=== PATIENT | female | born 1940 | race Caucasian/White ===

== ENCOUNTER 2017-06-13 07:59 | Day surgery (SDC) | payer MEDICARE ==
[~2017-06-13] VITALS: Ht 157.5 cm; Wt 46.9 kg
[~2017-06-13 07:59] MED LIST: ALL220TA PO; ASPI325T PO; CALTTAB5 PO; CHOL1CAP6 PO; ENOX40P SQ; LORTA5 PO; METO25 PO; Z.0.COMMODE-3:1; Z.0.WALKERPLAT
[2017-06-13] MEDS ORDERED: SODIUM CHLOR 0.9% 1000 ML INJ 1,000 ML IV SCH (08:00)
[2017-06-13] MEDS ORDERED: SODIUM BICARBONATE 100 MEQ in D5W 1000 ML IV SCH (08:30)
[2017-06-13 08:31] VITALS: BP 191/96; PULSE 86; RESP 16; TEMP 97.8; O2SAT 97
[2017-06-13] MEDS ORDERED: GABA300C5 PO (08:39)
[2017-06-13] MEDS ORDERED: METO25TA6 PO (08:39)
[2017-06-13] MEDS ORDERED: ALLE10TA PO (08:39)
[2017-06-13] MEDS ORDERED: SUDO60TA2 PO (08:39)
[2017-06-13] MEDS ORDERED: CALTCHW5 PO (08:39)
[2017-06-13 08:59] LABS: AUTOMATED NEUTROPHIL # 3.4 TH/MM3 (1.8-7.7); BASOPHIL # 0.1 TH/MM3 (0-0.2); BASOPHIL % 1.1 % (0.0-2.0); EOSINOPHIL # 0.3 TH/MM3 (0-0.4); EOSINOPHIL % 4.8 % (0.0-4.0); HEMATOCRIT 38.9 % (35.0-46.0); HEMO FLAGS DIFF FINAL; LYMPH % 30.8 % (9.0-44.0); LYMPHOCYTE # 1.9 TH/MM3 (1.0-4.8); MEAN CELL VOLUME 90.6 FL (80.0-100.0); MEAN CORPUSCULAR HGB CONC 34.2 % (32.0-36.0); MONO % 7.8 % (0.0-8.0); NEUT % 55.5 % (16.0-70.0); PLATELET COUNT 279 TH/MM3 (150-450); RED BLOOD COUNT 4.29 MIL/MM3 (4.00-5.30); RED CELL DISTRIBUTION WIDTH 13.6 % (11.6-17.2); WHITE BLOOD COUNT 6.1 TH/MM3 (4.0-11.0)
[2017-06-13 09:01] LABS: PROTHROMBIN TIME - PATIENT 11.4 SEC (9.8-11.6)
[2017-06-13 09:11] LABS: POTASSIUM 3.1 MEQ/L (3.5-5.1)
[2017-06-13] MEDS ORDERED: HEPARIN SODIUM - IV 10,000 UNITS/10 ML VIAL ONE (09:39)
[2017-06-13] MEDS ORDERED: MIDAZOLAM HCL 5 MG/ML VIAL (1 ML) ONE (10:12)
--- NOTE | 2017-06-13 10:32 | PD.VS.PN ---
Pre-operative Note Pre-operative diagnosis: PAD, R LE rest pain Planned procedure: Aortogram w/ R LE angiogram Interval History: Pt has nightly pain in the RIGHT foot Labs: Laboratory Results Test 06/13/17 08:15 White Blood Count 6.1 TH/MM3 (4.0-11.0) Red Blood Count 4.29 MIL/MM3 (4.00-5.30) Hemoglobin 13.3 GM/DL (11.6-15.3) Hematocrit 38.9 % (35.0-46.0) Mean Corpuscular Volume 90.6 FL (80.0-100.0) Mean Corpuscular Hemoglobin 31.0 PG (27.0-34.0) Mean Corpuscular Hemoglobin 34.2 % Concent (32.0-36.0) Red Cell Distribution Width 13.6 % (11.6-17.2) Platelet Count 279 TH/MM3 (150-450) Mean Platelet Volume 8.2 FL (7.0-11.0) Prothromb Time International 1.0 RATIO Ratio Sodium Level 138 MEQ/L (136-145) Potassium Level 3.1 MEQ/L (3.5-5.1) Chloride Level 100 MEQ/L (98-107) Carbon Dioxide Level 31.0 MEQ/L (21.0-32.0) Anion Gap 7 MEQ/L (5-15) Blood Urea Nitrogen 10 MG/DL (7-18) Random Glucose 99 MG/DL (74-106) Calcium Level 9.4 MG/DL (8.5-10.1) Blood: none needed Imaging: will make Orders: NPO no antibiotics needed Post-operative destination: DOCU Operative site marked: Yes Consent: Informed consent has been obtained from Analy Young. I have explained the procedure in detail and discussed the risks, benefits, and potential complications. All questions have been answered. Carlos Adames MD Jun 13, 2017 10:32
[2017-06-13] MEDS ORDERED: IOHEXOL 300 MG/ML 50 ML BTL (for RAD DIAG) OTHER ONE (10:35)
[2017-06-13] MEDS ORDERED: IOHEXOL 300 MG/ML 100 ML BTL (for Rad CT) OTHER ONE (10:36)
--- NOTE | 2017-06-13 11:19 | HHI.PR ---
Immediate Post Op Note Procedure Date: Jun 13, 2017 Pre Op Diagnosis: PAD, R LE with rest pain Post Op Diagnosis: PAD, R LE with rest pain Surgeon: Carlos Adames [employer] Gatherer(s): none Procedure: Aortogram w/ R LE angiogram R SFA ACCOUNTS PAYABLE ANALYST Findings: SFA occlusion, successful recanalization and ACCOUNTS PAYABLE ANALYST (5mm) Additional Information: L SAFETY COMPANION Angioseal Complications: none apparent Specimen(s) removed: none Estimated blood loss: 10mL Anesthesia: MAC Drains: None Patient to: Other (DOCU) Patient Condition: Good Date/Time of Procedure: SEE SURGICAL CARE RECORD Carlos Adames MD Jun 13, 2017 11:19
[2017-06-13] MEDS ORDERED: hydrALAZINE HCL 20 MG/ML VIAL ONE (11:21)
[2017-06-13] MEDS ORDERED: CLOPIDOGREL 75 MG TAB PO ONE (11:30)
--- NOTE | 2017-06-13 22:46 | MP ---
cc: JENA ADAMES MD DATE OF SURGERY 06/13/17 PREOPERATIVE DIAGNOSIS Right lower extremity peripheral arterial occlusive disease and rest pain. POSTOPERATIVE DIAGNOSIS Right lower extremity peripheral arterial occlusive disease and rest pain. PROCEDURE 1. Aortogram with right lower extremity angiogram. 2. Right SFA angioplasty with a 5-mm balloon 3. Left common femoral artery Angio-Seal. ATTENDING SURGEON Corbin Adames MD ANESTHESIA Local with sedation INDICATIONS Ms. Young is a 77-year-old female with peripheral vascular occlusive disease and CLARITA of 0.3 on the right with symptomatic rest pain. He is taken to the operating room for angiographic evaluation and potential treatment. There is no prior catheter-based imaging available for my review. PROCEDURE IN DETAIL Informed consent from the patient. She was taken to the operating room and placed supine on the operating table. An appropriate time-out was taken to ensure the patient's identity, operative site and planned procedure. No antibiotics are necessary as this is a clean procedure without a planned implantation of any foreign object. Everyone in the room agreed with the time-out and we proceeded. Her bilateral groins were prepped and draped. Left groin was anesthetized with 1% Lidocaine. A 21 gauge micropuncture needle was used to access the left common femoral artery. It was exchanged using Seldinger technique for a micropuncture sheath through which a 0.035 Casper wire was introduced and the micropuncture sheath was changed for a 4-Andorran sheath. A VCF catheter was placed over the wire through the sheath and an aortogram was obtained. The Casper wire was reintroduced and navigated down to the right common femoral artery and a VCF catheter was advanced over this. A right lower extremity arteriogram was obtained. The patient was systemically heparinized with 5000 units of IV heparin. A 0.035 Barajas wire was introduced and the VCF catheter and 4-Andorran sheath were removed and a 6-Andorran 55 cm Pradeep sheath was introduced. Over the Barajas and through the Pradeep, a 0.035 CXI catheter was placed and the Barajas was exchanged for a 0.014 25 gram ART HANDLER wire. Using the ART HANDLER wire and CXI catheter, we were able to navigate through the SFA occlusion into the popliteal artery. An angiogram confirmed we were indeed in the popliteal artery. The ART HANDLER was exchanged for the Barajas and the entire SFA was angioplastied with a 5 mm balloon. The completion angiogram showed excellent result and a recoil extravasation. There was good runoff of the foot. The wire, catheter and sheath were removed and the groin was closed with an AngioSeal. There were no complications and I was present and scrubbed for the entire procedure. INTERPRETATION The patient had patent renal arteries bilaterally, patent infrarenal aorta that is calcified. There is approximately 30% stenosis of the distal aorta. Both common iliac arteries, hypogastric arteries and external iliac arteries are patent without any hemodynamically significant stenoses. The right common femoral artery is patent. The profunda is patent but diseased. The SFA is occluded after approximately 1 cm. Profunda based collaterals reconstitute the popliteal artery and there appears to be at least peroneal artery runoff. After angioplasting the SFA, there is wide patency of the SFA without any stenoses, extravasation or dissection. After angioplasting the SFA, there is two-vessel runoff to the level of the ankle. MD JASBIR Ballesteros/ /6:00 PM /10:29 PM
--- NOTE | 2017-06-14 11:52 | EKG ---
Date Performed: 06/13/2017 Time Performed: 08:49:26 PTAGE: 77 years EKG: Regular supraventricular rhythm. Septal and lateral ST-T changes are nonspecific Borderline ECG NO PREVIOUS TRACING DOCTOR: Roman Catrer Interpretating Date/Time 06/14/2017 11:50:35
[2017-06-15] MEDS ORDERED: CLOPIDOGREL 75 MG TAB PO SCH (09:00)
== END 2017-06-13 13:46 | disposition home or self-care (01) ==
LOC: HCVO 07:59 → HDIC 08:18 → HCVO 13:46
PROVIDERS: ATTEND Surgery
DX: I70.221 Atherosclerosis of native arteries of extremities with rest pain, right leg (principal); M81.0 Age-related osteoporosis without current pathological fracture
CPT/HCPCS: 37224; 75625; 75710; 80048; 85025; 85610; 93005; C1725; C1769; G0269; J0360; J1644; J2250; J3010; J7070; Q9967

== ENCOUNTER 2017-10-30 12:34 | Day surgery (SDC) | payer MEDICARE ==
[~2017-10-30] VITALS: Ht 157.5 cm; Wt 44.8 kg
[~2017-10-30 12:34] MED LIST changes: -ALL220TA PO; -ASPI325T PO; +CALTCHW5 PO; -CALTTAB5 PO; -CHOL1CAP6 PO; -ENOX40P SQ; +GABA300C5 PO; +LORA-650 PO; -LORTA5 PO; +METO1TAB42 PO; -METO25 PO; +SUDO60TA2 PO; -Z.0.COMMODE-3:1; -Z.0.WALKERPLAT
[2017-10-30] MEDS ORDERED: IOHEXOL 350 MG/ML 100 ML BTL (for Cath Lab) OTHER ONE (12:35)
[2017-10-30] MEDS ORDERED: HEPARIN-NS/PF INJ 1,000 ML ONE (13:35)
[2017-10-30] MEDS ORDERED: MIDAZOLAM HCL 2 MG/2 ML VIAL ONE (13:35)
[2017-10-30] MEDS ORDERED: HEPARIN SODIUM - IV 10,000 UNITS/10 ML VIAL ONE (13:35)
--- NOTE | 2017-10-30 13:47 | HHI.HP ---
History of Present Illness Chief Complaint: R LE pain History of Present Illness 77 yo female with PAD and near rest pain. 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 No night time pain. + short distance claudication. Past/Family/Social History Past Medical History HTN PAD neuro d/o Past Surgical History R LE angioplasty Social History nonsmoker Family History NC Home Medications Reported Medications Pseudoephedrine (Pseudoephedrine) 60 Mg Tab, 60 MG PO Q6H Y for NASAL CONGESTION , TAB 0 Refills 06/13/17 Loratadine (Allergy Relief) 10 Mg Tab, 10 MG PO DAILY, TAB 06/13/17 Metoprolol Succinate ER 24 HR (Metoprolol Succinate ER 24 HR) 25 Mg Tab, 25 MG PO DAILY, TAB 0 Refills 06/13/17 Gabapentin (Gabapentin) 300 Mg Cap, 300 MG PO TID, CAP 0 Refills 06/13/17 Calcium Carbonate-Vitamin D Chew (Caltrate 600+D Chew) 600-400 Mg-Unit Chew, 1 TAB PO DAILY for Nutritional Supplement, EA 0 Refills 06/13/17 Coded Allergies: cefdinir (Unverified Adverse Reaction, Severe, N,V,D, 06/27/17) cyclobenzaprine (Unverified Adverse Reaction, Severe, RESTLESS, 06/27/17) meloxicam (Unverified Adverse Reaction, Severe, STOMACH PAIN, 06/27/17) metronidazole (Unverified Adverse Reaction, Severe, N,V,D, 06/27/17) rifampin (Unverified Adverse Reaction, Severe, RESTLESS, 06/27/17) sucralfate (Unverified Adverse Reaction, Severe, ACHEY,DIARRHEA, 06/27/17) Review of Systems Constitutional: DENIES: Chills Ears, nose, mouth, throat: COMPLAINS OF: Throat pain Physical Exam Neuro: alert, no distress HEENT: NC/AT, baseline speech Neck: no JVD Heart: reg rate, no M Lungs: clear B Abdomen: soft NT Vascular: nonpalpable pulses pending Caprini VTE Risk Assessment Caprini VTE Risk Assessment: No/Low Risk (score <= 1) Caprini Risk Assessment Model Point Value = 1 Point Value = 2 Point Value = 3 Point Value = 5 Age 41-60 Minor surgery BMI > 25 kg/m2 Swollen legs Varicose veins or History of unexplained or recurrent spontaneous Oral contraceptives or hormone replacement Sepsis (< 1 month) Serious lung disease, including pneumonia (< 1 month) Abnormal pulmonary function Acute myocardial infarction Congestive heart failure (< 1 month) History of inflammatory bowel disease Medical patient at bed rest Age 61-74 Arthroscopic surgery Major open surgery (> 45 min) Laparoscopic surgery (> 45 min) Malignancy Confined to bed (> 72 hours) Immobilizing plaster cast Central venous access Age >= 75 History of VTE Family history of VTE Factor V Leiden Prothrombin [id number] Lupus anticoagulant Anticardiolipin antibodies Elevated serum homocysteine Heparin-induced thrombocytopenia Other congenital or acquired thrombophilia Stroke (< 1 month) Elective arthroplasty Hip, pelvis, or leg fracture Acute spinal cord injury (< 1 month) Prophylaxis Regimen Total Risk Factor Score Risk Level Prophylaxis Regimen 0-1 Low Early ambulation 2 Moderate Order ONE of the following: *Sequential Compression Device (SCD) *Heparin 5000 units SQ BID 3-4 Higher Order ONE of the following medications: *Heparin 5000 units SQ TID *Enoxaparin/Lovenox 40 mg SQ daily (WT < 150 kg, CrCl > 30 mL/min) *Enoxaparin/Lovenox 30 mg SQ daily (WT < 150 kg, CrCl > 10-29 mL/min) *Enoxaparin/Lovenox 30 mg SQ BID (WT < 150 kg, CrCl > 30 mL/min) AND/OR *Sequential Compression Device (SCD) 5 or more Highest Order ONE of the following medications: *Heparin 5000 units SQ TID (Preferred with Epidurals) *Enoxaparin/Lovenox 40 mg SQ daily (WT < 150 kg, CrCl > 30 mL/min) *Enoxaparin/Lovenox 30 mg SQ daily (WT < 150 kg, CrCl > 10-29 mL/min) *Enoxaparin/Lovenox 30 mg SQ BID (WT < 150 kg, CrCl > 30 mL/min) AND *Sequential Compression Device (SCD) Assessment and Plan Plan R LE angiogram and potential intervention Carlos Adames MD Oct 30, 2017 13:47
[2017-10-30 14:14] LABS: AUTOMATED NEUTROPHIL # 4.9 TH/MM3 (1.8-7.7); BASOPHIL % 0.6 % (0.0-2.0); EOSINOPHIL # 0.1 TH/MM3 (0-0.4); EOSINOPHIL % 1.9 % (0.0-4.0); HEMATOCRIT 36.2 % (35.0-46.0); HEMO FLAGS DIFF FINAL; LYMPH % 21.6 % (9.0-44.0); LYMPHOCYTE # 1.5 TH/MM3 (1.0-4.8); MEAN CELL VOLUME 92.3 FL (80.0-100.0); MEAN CORPUSCULAR HEMOGLOBIN 31.4 PG (27.0-34.0); MONO % 5.8 % (0.0-8.0); NEUT % 70.1 % (16.0-70.0); PLATELET COUNT 258 TH/MM3 (150-450); RED BLOOD COUNT 3.92 MIL/MM3 (4.00-5.30); RED CELL DISTRIBUTION WIDTH 13.6 % (11.6-17.2)
[2017-10-30 14:42] LABS: BICARBONATE 30.9 MEQ/L (21.0-32.0); POTASSIUM 4.1 MEQ/L (3.5-5.1)
[2017-10-30] MEDS ORDERED: SODIUM CHLORIDE 0.9% FLUSH 10 ML FLUSH IV FLUSH PRN (15:00)
[2017-10-30] MEDS ORDERED: CLINDAMYCIN 600 MG/NS 100 ML IV ONE ×2 (15:15)
--- NOTE | 2017-10-30 15:27 | CATHPROC ---
Listen Edition HIS Report Study Information Study Number Admission Scheduled Start Study Start [id number] Oct 30 2017 12:34PM 10/30/2017 Oct 30 2017 2:36PM [place] Service Cath Endovascular Study Admit Source Facility Department Other [facility] - Taper Operator Physician and Clinical Staff Initial MD Adames, Carlos Community Advocate Anila Wolf,RN Recorder Fortino Cash,RT(R) Scrub Jese Cook,RT(R) Procedures Performed Procedure Location (Site) Vessel Name Abdominal Angiogram Abd Aorta (A3) Aorta Periph stent SFA (right) Femoral Art PARTS DELIVERY DRIVER Fem Art (right) Femoral Art PARTS DELIVERY DRIVER SFA (right) Femoral Art Wire insertion Fem Art (right) Femoral Art Equipment Time Electronics Manufacturer Description Size Mfg Part Number Used/Scraped [id number] 14:44 ANGIO-DYNAMICS OMNI FLUSH 65CM CATHETER FR 4 Used *[id number] INTRODUCER SET, 14:44 [employer]. FR 5 [id number] *[id number] Used MICROPUNCTURE, STIFFENED CXI-4.0-35-135- 14:51 COOK/MARIFER CATHETER, FR4 CXI SUPPORT FR 4 Used P-NS-0 *[id number] SHEATH, FR6 BEATRIZ 1 FLEXOR [id number] 14:50 COOK/MARIFER FR 6 Used 55CM *[id number] SHEATH, FR6 BEATRIZ 1 FLEXOR [id number] 14:55 COOK/MARIFER FR 6 Used 55CM *[id number] WIRE, GUIDE APPROACH HAND SALTER [id number] 14:58 COOK/MARIFER 300CM Used MICROWIRE *[id number] 15:02 DAIG/ST. SERENA MED[employer] ANGIOSEAL, FR6 VIP FR 6 Used *[id number] ENDOVASCULAR [id number]- 15:09 STENT, EVERFLEX 6 X 120 120CM 6 X 120 Used [employer] 120 ENDOVASCULAR [id number]- 15:14 STENT, EVERFLEX 6 X 150 120CM 6 X 150 Used [employer] 120 BALLOON, ADMIRAL EXTREME 5 X [id number] 15:12 [employer] 130CM Used 150 130CM *[id number] BALLOON, ADMIRAL EXTREME 5 X [id number] 15:02 [employer] 130CM Used 200 130CM *[id number] 14:44 [employer] PACK, CCL CUSTOM * Used *[id number] 14:44 [employer] PRESSURE TUBING 48" 48" [id number] Used [id number] 14:51 [employer] WIRE, KRUEGER 260CM .035 260CM Used *[id number] 14:44 NAMIC TUBING, HIGH PRESSURE 20" 20" Used *[id number] 14:44 [employer]COMED OMNIPAQUE, 300 MG, 150ML 150ML [id number] Used 14:44 NYCOMED OMNIPAQUE, 300 MG, 50ML 50ML [id number] Used [id number] 14:44 ROSSI MED[employer] BLANKET,WARM AIR CCL * Used *[id number] 14:44 TERUMO MED[employer] SHEATH, FR4 TERUMO (10CM) FR 4 Used *[id number] 14:53 TERUMO MEDICAL SHEATH, FR6 TERUMO (10CM) FR 6 Used *[id number] WIRE, ANGLED GLIDE .035 [id number] 14:44 TERUMO MEDICAL/MARIFER 260CM Used 260CM *[id number] Equipment Model, Serial, Lot Number and Expiration Data Description Model Number Serial Number Lot Number Expiration Date ANGIOSEAL, FR6 VIP [id number] 06-12-2018 CATHETER, FR4 CXI SUPPORT [id number] 08-08-2020 SHEATH, FR6 BEATRIZ 1 FLEXOR [id number] 12-23-2019 55CM SHEATH, FR6 BEATRIZ 1 FLEXOR [id number] 08-21-2020 55CM STENT, EVERFLEX 6 X 120 120CM [id number] 10-14-2019 STENT, EVERFLEX 6 X 150 120CM [id number] 10-20-2019 WIRE, GUIDE APPROACH HAND SALTER [id number] 12-28-2021 MICROWIRE History: Allergies Allergy Reaction Carafate ACHEY,DIARRHEA Flagyl N,V,D Flexeril RESTLESS metronidazole N,V,D Mobic STOMACH PAIN Omnicef N,V,D rifampin RESTLESS sucralfate ACHEY,DIARRHEA cyclobenzaprine RESTLESS meloxicam STOMACH PAIN cefdinir N,V,D Penicillins History: Risk Factors Family History of Hypertension Dyslipidemia Previous PA Previous Heart Failure Premature CAD Yes No No No No Prior Valve Prior PCI Prior CABG Surgery No No No Cerebrovascular Peripheral Artery Chronic Lung On Dialysis Diabetes Disease Disease Disease No No Yes No No History: Other Current Smoker No Labs Hgb (g/dl) Hct (%) WBC (l/cumm) Platelets (thousands) 11.60-17.00 35.00-51.00 4.00-11.00 150.00-450.00 12.3 36.2 7 258 CPK-MB (ng/ML) 0.50-3.60 Not Drawn Medication Medication Total Dose (Bolus/Oral) Medication Total Dosage/Unit 1% XYLOCAINE 10 mL FENTANYL 100 mcg HEPARIN 5000 units VERSED 2 mg Medications (Bolus/Oral) Medication Time Given Dosage/Unit Administered By Reason VERSED 10/30/2017 2:41:00 PM 1 mg Anila Wolf Patient arrived on 1 mg VERSED given by Anila Wolf RN via Peripheral IV. Ordered by Gus Adames. FENTANYL 10/30/2017 2:42:20 PM 25 mcg Anila Wolf Patient arrived on 25 mcg FENTANYL given by Anila Wolf RN via Peripheral IV. Ordered by Carlos Adames. 1% XYLOCAINE 10/30/2017 2:42:52 PM 10 mL Carlos Adames Patient arrived on 10 mL 1% XYLOCAINE given by Carlos Adames in Left Groin via Subcutaneous. Ordered by Carlos Adames. HEPARIN 10/30/2017 2:50:28 PM 5000 units Anila Wolf Patient arrived on 5000 units HEPARIN given by Anila Wolf RN in Right Antecubital via Periphera l IV. Ordered by Carlos Adames. VERSED 10/30/2017 2:52:18 PM 1 mg Anila Wolf Patient arrived on 1 mg VERSED given by Anila Wolf RN via Peripheral IV. Ordered by Gus Adames. FENTANYL 10/30/2017 2:53:04 PM 25 mcg Anila Wolf Patient arrived on 25 mcg FENTANYL given by Anila Wolf RN via Peripheral IV. Ordered by Carlos Adames. FENTANYL 10/30/2017 3:02:50 PM 50 mcg Anila Wolf Patient arrived on 50 mcg FENTANYL given by Anila Wolf RN via Peripheral IV. Ordered by Carlos Adames. Medication (Drip) Medication Time Given Dosage/Unit Concentration/Unit Diluent (ml) Solution IV Solutions 10/30/2017 2:37:45 PM 0 mL (IV) 500 NaCl .9 Patient arrived on IV Solutions given by Carlos Adames in Right Antecubital via Peripheral IV. Pump/ Drip Flow = 20 ml/hr using NaCl .9. Ordered by Carlos Adames. Initial Case Assessment Cardiovascular HR Rhythm NIBP 86 sr 182/116 Edema Present Skin color Skin None Normal Warm Dry Circulatory - Right Pulses Femoral 3 Scale (0,1,2,3,4,d) Circulatory - Left Pulses Femoral 3 Scale (0,1,2,3,4,d) Neurological State Oriented to time-place- Alert Moves all extremities person Respiration - General Respiration Rate SpO2 (%) O2 (lpm) (B/min) 18 97 0 Final Case Assessment Cardiovascular HR Rhythm NIBP Chest Pain 80 sr 176/90 0 Edema Present Skin color Skin None Normal Warm Dry Circulatory - Right Pulses Femoral 3 Scale (0,1,2,3,4,d) Circulatory - Left Pulses Femoral 3 Scale (0,1,2,3,4,d) Neurological State Oriented to time-place- Alert Moves all extremities person Respiration - General Respiration Rate SpO2 (%) O2 (lpm) (B/min) 18 96 0 Chronological Log Time Study Chronological Log 14:30:11 Patient arrived via Bed. 14:36:13 Patient Name, D.O.B, / Armband Verified By R.N. 14:36:14 Consent signed by the physician and the patient and verified by the Taper Operator staff. Vitals capture started with the following parameters, Patient=Adult, Interval=5 min, Initial Pr cgnmcx=517 mmHg, 14:36:18 Deflation Rate=5 mmHg, Cuff placed on Right Arm 14:36:27 Pre-op and post- op instructions given; patient acknowledges understanding of instructions. 14:36:58 Verbal Stimulation=2 Physical Stimulation=2 Airway=2 Respiration=2 TOTAL=8. (0=absent, 1=li mited, 2=present) 14:37:11 Presedation assessment performed by Taper Operator RN. 14:37:13 Patient has been NPO for More than 6Hrs. 14:37:15 Skin Breakdown-none present per patient. 14:37:34 A # 22 IV was noted in the Antecubital (right). Grade = 0 14:37:35 HR=81 bpm, AGDS=836/116 mmhg, Resp=7 B/min, Tristan=2 Patient arrived on IV Solutions given by Carlos Adames in Right Antecubital via Peripheral IV. Pump/Drip Flow = 20 14:37:45 ml/hr using NaCl .9. Ordered by Carlos Adames. 14:38:04 History and physical on the chart or being dictated. Assessment: Initial Case, HR=86 BPM, Rhythm=sr, FACY=537/116 mmhg, Edema=None, Color=Normal, Sk in = Warm, Dry Right Pulses: Femoral=3 14:38:10 Left Pulses: Femoral=3 Neurological: State=Alert, Ox3, MACIEL Respiration: Resp=18 B/min, SpO2=97 %, O2=0 lpm 14:38:38 Bilateral groins prepped with 2% chlorhexidine, and draped after a 3 minute waiting time. 14:41:00 Patient arrived on 1 mg VERSED given by Anila Wolf, JORGE via Peripheral IV. Ordered by Carlos Dalal. Time Out. Correct patient, correct procedure, correct physician, power injector loaded with con trast with surgical team 14:41:29 present. Time Out Concurred by MD and individual staff in procedure. Loaded by Jana Molina., ve rified by Jese Cook. 14:42:04 HR=87 bpm, MZRT=942/80 mmhg, SpO2=99.0 %, Resp=14 B/min, Tristan=2 14:42:20 Patient arrived on 25 mcg FENTANYL given by Anila Wolf, JORGE via Peripheral IV. Ordered by Carlos Adames. 14:42:49 Case Start Patient arrived on 10 mL 1% XYLOCAINE given by Carlos Adames in Left Groin via Subcutaneous. O rdered by Zacarias 14:42:52 Carlos. 14:43:40 Access site was Left Femoral Artery. A INTRODUCER SET, MICROPUNCTURE, STIFFENED FR 5 was advanced into the Fem Art (left) using the Percutaneous 14:44:03 technique. A INTRODUCER SET, MICROPUNCTURE, STIFFENED FR 5 was exchanged in the Fem Art (left). This was n ecessary in 14:44:19 order to accomodate a larger catheter. A OMNI FLUSH 65CM CATHETER FR 4 was advanced over a wire. OMNIPAQUE, 300 MG, 150ML 150ML was us ed for 14:44:35 injections. 14:45:16 Wire removed 14:46:51 Through a OMNI FLUSH 65CM CATHETER FR 4, The Abdominal Aorta was injected with 10 cc's of c ontrast. 14:47:05 HR=81 bpm, EEXJ=056/72 mmhg, SpO2=94.0 %, Resp=12 B/min, Tristan=2 14:47:19 A WIRE, ANGLED GLIDE .035 260CM 260CM was inserted via Fem Art (right). 14:49:12 Through a OMNI FLUSH 65CM CATHETER FR 4, The Femoral Run-off was injected with 4 cc's per s econd. 14:49:23 Through a OMNI FLUSH 65CM CATHETER FR 4, The Femoral Run-off was injected with 4 cc's per s econd. 14:49:36 Through a OMNI FLUSH 65CM CATHETER FR 4, The Femoral Run-off was injected with 4 cc's per s econd. Patient arrived on 5000 units HEPARIN given by Anila Wolf, JORGE in Right Antecubital via Per ipheral IV. Ordered by 14:50:28 Carlos Adames. 14:50:59 A WIRE, KRUEGER 260CM .035 260CM was inserted via Fem Art (right). 14:52:02 HR=83 bpm, VSGB=670/80 mmhg, SpO2=98.0 %, Resp=11 B/min, Tristan=2 14:52:18 Patient arrived on 1 mg VERSED given by Anila Wolf, JORGE via Peripheral IV. Ordered by Carlos Dalal. A SHEATH, FR6 TERUMO (10CM) FR 6 was exchanged in the Fem Art (left). This was necessary in ord er to 14:52:32 accomodate a larger catheter. 14:53:04 Patient arrived on 25 mcg FENTANYL given by Anila Wolf, JORGE via Peripheral IV. Ordered by Carlos Adames. A SHEATH, FR6 BEATRIZ 1 FLEXOR 55CM FR 6 was exchanged in the Fem Art (left). This was necessary in order to 14:55:29 accomodate a larger catheter. 14:57:03 HR=83 bpm, AALR=887/74 mmhg, SpO2=91.0 %, Resp=13 B/min, Tristan=2 A CATHETER, FR4 CXI SUPPORT FR 4 was advanced over a wire. OMNIPAQUE, 300 MG, 150ML 150ML was u sed for 14:57:27 injections. 14:58:23 The previous wire was exchanged for a WIRE, GUIDE APPROACH HAND SALTER MICROWIRE 300CM. 15:01:18 Reference ECG taken 15:02:00 HR=81 bpm, JLXV=572/66 mmhg, SpO2=94.0 %, Resp=11 B/min, Tristan=2 15:02:12 The previous wire was exchanged for a WIRE, KRUEGER 260CM .035 260CM. 15:02:17 Catheter was removed A BALLOON, ADMIRAL EXTREME 5 X 200 130CM 130CM was inserted over WIRE, ANGLED GLIDE .035 260CM 260CM 15:02:23 via the SFA (right). 15:02:50 Patient arrived on 50 mcg FENTANYL given by Anila Wolf RN via Peripheral IV. Ordered by Carlos Adames. 15:03:04 In the SFA (right) a BALLOON, ADMIRAL EXTREME 5 X 200 130CM 130CM was inflated to 8 atms fo r 60 seconds. 15:04:36 In the SFA (right) a BALLOON, ADMIRAL EXTREME 5 X 200 130CM 130CM was inflated to 8 atms fo r 60 seconds. 15:07:36 HR=81 bpm, GANS=727/97 mmhg, SpO2=90.0 %, Resp=11 B/min, Tristan=2 15:09:00 Balloon Removed. A STENT, EVERFLEX 6 X 120 120CM 6 X 120 was advanced through a catheter over a WIRE, PATI 260C M .035 15:09:24 260CM. A STENT, EVERFLEX 6 X 120 120CM 6 X 120 was deployed at ~EVANGELIST~ atmospheres for ~SECONDS~ seconds in the SFA 15:09:43 (right). Self Expanding stent deployed 15:11:20 Delivery device removed A BALLOON, ADMIRAL EXTREME 5 X 150 130CM 130CM was inserted over WIRE, KRUEGER 260CM .035 260CM v ia the 15:11:48 SFA (right). 15:12:12 HR=76 bpm, ZNGZ=347/77 mmhg, SpO2=94.0 %, Resp=8 B/min, Tristan=2 15:12:30 In the SFA (right) a BALLOON, ADMIRAL EXTREME 5 X 150 130CM 130CM was inflated to 8 atms fo r 10 seconds. 15:12:57 In the SFA (right) a BALLOON, ADMIRAL EXTREME 5 X 150 130CM 130CM was inflated to 8 atms fo r 10 seconds. 15:13:46 Balloon Removed. A STENT, EVERFLEX 6 X 150 120CM 6 X 150 was advanced through a catheter over a WIRE, KRUEGER 260C M .035 15:15:00 260CM. A STENT, EVERFLEX 6 X 150 120CM 6 X 150 was deployed at ~EVANGELIST~ atmospheres for ~SECONDS~ seconds in the SFA 15:15:31 (right). Self Expanding stent deployed 15:17:01 Delivery device removed A BALLOON, ADMIRAL EXTREME 5 X 150 130CM 130CM was inserted over WIRE, KRUEGER 260CM .035 260CM v ia the 15:17:05 SFA (right). 15:17:07 HR=79 bpm, URTF=837/80 mmhg, SpO2=95.0 %, Resp=9 B/min, Tristan=2 15:17:16 In the Fem Art (right) a BALLOON, ADMIRAL EXTREME 5 X 150 130CM 130CM was inflated to 10 at ms for 10 seconds. 15:17:34 In the Fem Art (right) a BALLOON, ADMIRAL EXTREME 5 X 150 130CM 130CM was inflated to 10 at ms for 10 seconds. 15:17:49 Balloon Removed. 15:19:19 Wire removed 15:21:26 ANGIOSEAL, FR6 VIP FR 6 placement in the Fem Art (left) 15:22:04 HR=81 bpm, MLDF=719/90 mmhg, SpO2=95.0 %, Resp=63 B/min, Tristan=2 Assessment: Final Case, HR=80 BPM, Rhythm=sr, MHLZ=511/90 mmhg, Chest Pain=0, Edema=None, Color =Normal, Skin = Warm, Dry Right Pulses: Femoral=3 15:22:07 Left Pulses: Femoral=3 Neurological: State=Alert, Ox3, MACIEL Respiration: Resp=18 B/min, SpO2=96 %, O2=0 lpm 15:22:41 Catheter(s) removed without difficulty 15:22:47 Case End 15:22:49 Sterile dressing applied to site 15:22:50 No case complications noted. 15:22:54 Cine recording checked. 15:22:58 Bedside Report will be given. 15:23:00 Implantable Device card placed in patient's chart. 15:23:03 Contrast Scanned 15:25:13 Vitals capture stopped. 15:27:20 Patient moved to stretcher End Study - Contrast Media Used In Study Contrast Total Opened (mL) Total Used (mL) Total Wasted (mL) Omnipaque 75 75 0 End Study - Radiation Exposure Fluoro Time (minutes) 9.3 End Study - Patient Disposition Complications Transferred To Telemetry Bed
[2017-10-30] MEDS ORDERED: CLOPIDOGREL 75 MG TAB PO ONE (15:30)
[2017-10-30] MEDS ORDERED: CLINDAMYCIN 600 MG/NS PREMIX 50 ML IV ONE (15:30)
--- NOTE | 2017-10-30 15:56 | HHI.PR ---
Immediate Post Op Note Procedure Date: Oct 30, 2017 Pre Op Diagnosis: PAD, R LE Post Op Diagnosis: PAD, R LE Surgeon: Carlos Admaes Broth Setter(s): none Procedure: Aortogram w/ R LE R SFA [employer]PER[employer] HELPER/stent (6x120, 6x150) L SHANK ARCHER Angioseal Findings: SFA occlusion, F[employer] OPER[employer] HELPER and stent good result Complications: none Specimen(s) removed: none Estimated blood loss: 10mL Anesthesia: MAC Drains: None Fluids: 500mL IVF Patient to: PACU Patient Condition: Good Implant/Devices: SEE IMPLANT LOG (if applicable) Date/Time of Procedure: SEE SURGICAL CARE RECORD Carlos Adames MD Oct 30, 2017 15:56
[2017-10-31] MEDS ORDERED: CLOPIDOGREL 75 MG TAB PO SCH (09:00)
--- NOTE | 2017-10-31 17:57 | MP ---
cc: JENA ADAMES MD DATE OF SURGERY 10/30/2017 PREOPERATIVE DIAGNOSIS Right lower extremity rest pain and peripheral vascular disease. POSTOPERATIVE DIAGNOSIS Right lower extremity rest pain and peripheral vascular disease. PROCEDURE 1. Aortogram with right lower extremity angiogram. 2. Right SFA angioplasty and stent with a 6 x 120, 6 x 150 Protege. 3. Left common femoral artery Angio-Seal. ATTENDING SURGEON Jena Adames. RESIDENT SURGEON None. ANESTHESIA Local with sedation. INDICATION Ms. Young is a 77-year-old lady who has right lower extremity rest pain and diminished ABIs and dependent rubor. She had a previous SFA intervention several months ago but this is believed to be occluded. She is taken to the operating room for remediation. There is no prior catheter-based imaging available for my review since the diminishing of her CLARITA and return of her symptoms. DESCRIPTION OF PROCEDURE Informed consent was obtained from the patient. She was taken to the operating room and placed supine on the operating table. An appropriate timeout was taken to ensure the patient's identity, operative site and planned procedure. The administration of 600 mg of clindamycin was initiated prior to stent implantation and will be discontinued after a single preoperative dose. Evidence in the room agreed with the timeout and we proceeded. Her bilateral groins were prepped and draped. The left groin was anesthetized with 1% lidocaine. A 21-gauge micropuncture needle was used to access the left common femoral artery. This was exchanged using Seldinger technique for a micropuncture sheath through which a 0.035 Glidewire was introduced. The micropuncture sheath was exchanged for a 4 Welsh sheath and a VCF catheter was placed over the wire and through the sheath. The aortogram and pelvic arteriogram was obtained. The Glidewire was reintroduced and navigated down to the right common femoral artery. The VCF catheter was advanced over this. The right lower extremity arteriogram was obtained. The patient was systemically heparinized with 5000 units of IV heparin. A 0.035 [place] wire was introduced and the VCF catheter and 4 Welsh sheath were removed and a 6 Welsh 55 cm Pradeep sheath was introduced. A CXI catheter was placed over the wire and through the sheath and the Barajas wire was exchanged for a [employer] wire. Using the [employer] and the CXI we were able to navigate down to the popliteal artery and the entire SFA was angioplastied with a 5 mm balloon. The completion angiogram showed residual dissection. This was treated with a 6 x 150, 6 x 120 self-expanding stent which was then post dilated 5 mm. The completion angiogram showed excellent result without any recoil extravasation. The wire, catheter and sheath were removed and the groin was closed with Angio-Seal. There were no complications. I was present and scrubbed for the entire procedure. INTERPRETATION OF IMAGES The patient has patent distal aorta, common iliac arteries, hypogastric arteries and external iliac arteries bilaterally. There is no hemodynamically significant stenoses in any of these blood vessels. The right common femoral artery and profunda are patent. The SFA is occluded after a couple of centimeters and then via profunda-based collaterals the distal SFA is reconstituted. The popliteal artery is patent and the below knee popliteal artery is patent. The posterior tibial artery and peroneal artery are the dominant runoff to the foot. After angioplasty of the SFA there is residual stenosis and dissection. This was treated with a stent and after placing the stent there is no more flow-limiting dissection or any extravasation seen. MD JASBIR Ballesteros/MILDRED /5:54 PM /5:42 PM
== END 2017-10-30 18:00 | disposition home or self-care (01) ==
LOC: HDOC 12:34 → HDIC 12:34 → HDOC 18:00
PROVIDERS: ATTEND Surgery
DX: I73.9 Peripheral vascular disease, unspecified (principal); I10 Essential (primary) hypertension; Z01.818 Encounter for other preprocedural examination
CPT/HCPCS: 37226; 75625; 75710; 80048; 85025; 99152; 99153; C1725; C1751; C1760; C1769; C1876; C1893; G0269; J1644; J2250; J3010; Q9967